=== PATIENT | male | born 1950 | race Caucasian/White ===

== ENCOUNTER → 2025-07-03 | Outpatient (REF) | payer MEDICARE, SELFPAY ==
[2025-07-03 08:41] LABS: Hematocrit 34.1 % (40-54); Hemoglobin 10.9 g/dL (13.0-16.5); Mean Corp Hgb Conc 32.0 g/dL (32-36); Mean Corpuscular Volume 92.2 fL (80-94); Mean Platelet Vol. 11.0 fl (6.2-12.0); Platelet Count 234 K/mm3 (150-450); RBC Distribution Width CV 15.0 % (11.6-14.6); RBC Distribution Width SD 51.5 fl (35.1-43.9); Red Blood Count 3.70 M/mm3 (4.6-6.2); White Blood Count 4.9 K/mm3 (4.4-11.0)
[2025-07-03 09:05] LABS: AST(SGOT) 20 U/L (<=37); Alanine Aminotransfer ALT/SGPT 19 U/L (<=46); Albumin, Serum 3.5 g/dL (3.4-4.8); Alkaline Phosphatase 66 U/L (40-129); Anion Gap 8 (5-15); BUN 20 mg/dL (4-19); BUN/Creat Ratio 21.1 RATIO (10-20); Calcium,Total 9.0 mg/dL (7.6-11.0); Carbon Dioxide 26.2 mmol/L (21.0-32.0); Chloride 107 mmol/L (98-108); Globulin 2.9 g/dL (2.2-4.2); Glucose 79 mg/dL (70-99); Potassium 4.0 mmol/L (3.3-5.1)
== END ==
LOC: OLS.SANC 05:00
PROVIDERS: Visit Provider Internal Medicine
DX: I82.409 Acute embolism and thrombosis of unspecified deep veins of unspecified lower extremity (principal); G93.40 Encephalopathy, unspecified; Z79.899 Other long term (current) drug therapy
CPT/HCPCS: 36415; 80053; 84443; 85027